=== PATIENT | male | born 1940 | race Caucasian/White ===

== ENCOUNTER 2017-08-30 18:59 | Inpatient (IN) | payer MEDICARE, BC ==
[~2017-08-30] VITALS: Ht 175.3 cm; Wt 94.7 kg
[2017-08-30] MEDS ORDERED: ALBUTEROL/IPRATROPIUM 2.5MG/0.5MG, 3 ML NPPB ONE (19:30)
[2017-08-30] MEDS ORDERED: SODIUM CHLORIDE FLUSH 10ML SYR IVF ONE (19:30)
[2017-08-30] MEDS ORDERED: ALBUTEROL/IPRATROPIUM 2.5MG/0.5MG, 3 ML ONE (19:31)
[2017-08-30 19:45] LABS: BASOPHILS # (AUTO) 0.03 x10^3/uL (0-0.1); BASOPHILS % (AUTO) 0 % (0-1); EOSINOPHILS # (AUTO) 0.22 x10^3/uL (0-0.4); EOSINOPHILS % (AUTO) 1 % (1-7); LYMPHOCYTES # (AUTO) 2.02 x10^3/uL (1-3.4); LYMPHOCYTES % (AUTO) 13 % (22-44); MD NO; MEAN CORPUSCULAR HEMOGLOBIN 29.7 pg (27.5-34.5); MEAN CORPUSCULAR HGB CONC 33.3 g/dL (33.2-36.2); MEAN CORPUSCULAR VOLUME 89.2 fL (81-97); MEAN PLATELET VOLUME 8.9 fL (7.4-10.4); MONOCYTES # (AUTO) 1.41 x10^3/uL (0.2-0.8); MONOCYTES % (AUTO) 9 % (2-9); NEUTROPHILS # (AUTO) 12.08 x10^3/uL (1.8-6.8); NEUTROPHILS % (AUTO) 77 % (42-75); PLATELET COUNT 280 x10^3/uL (130-400); RED BLOOD COUNT 4.48 x10^6/uL (4.38-5.82); RED CELL DISTRIBUTION WIDTH 16.1 % (9.4-14.8)
[2017-08-30] MEDS ORDERED: ENAL10TA PO (19:48)
[2017-08-30] MEDS ORDERED: ATOR80TA PO (19:48)
[2017-08-30] MEDS ORDERED: BUDE10.22 INH (19:48)
[2017-08-30] MEDS ORDERED: FENO90CA PO (19:48)
[2017-08-30] MEDS ORDERED: TIOT18CA INH (19:48)
[2017-08-30] MEDS ORDERED: ASPI-496 PO (19:48)
[2017-08-30] MEDS ORDERED: METO-93 PO (19:48)
[2017-08-30 19:56] LABS: ALANINE AMINOTRANSFERASE 35 U/L (12-78); ALBUMIN 3.8 g/dL (3.4-5.0); ANION GAP 8 mmol/L (5-15); CALCIUM 9.2 mg/dL (8.5-10.1); CHLORIDE 113 mmol/L (98-107)
[2017-08-30 20:00] LABS: ALKALINE PHOSPHATASE 60 U/L (45-117); BILIRUBIN,TOTAL 0.7 mg/dL (0.2-1.0); CREATININE 2.55 mg/dL (0.7-1.3); TOTAL PROTEIN 8.5 g/dL (6.4-8.2); TROPONIN I 0.021 ng/mL (0.000-0.045)
[2017-08-30] MEDS ORDERED: FUROSEMIDE 40 MG/4 ML ONE (21:12)
[2017-08-30] MEDS ORDERED: ASPIRIN 81 MG TABLET CHEW ONE (21:12)
[2017-08-30] MEDS ORDERED: ASPIRIN 81 MG TABLET CHEW PO ONE (22:00)
[2017-08-30] MEDS ORDERED: FUROSEMIDE 40 MG/4 ML IVPush ONE (22:00)
[2017-08-30] MEDS ORDERED: ONDANSETRON 2MG/ML, 2ML IVPush PRN (22:30)
[2017-08-30] MEDS ORDERED: ACETAMINOPHEN 325 MG TABLET PO PRN (22:30)
[2017-08-30] MEDS ORDERED: BISACODYL 10 MG SUPP PR PRN (22:30)
[2017-08-30] MEDS ORDERED: POLYETHYLENE GLYCOL 17 GM PACKET PO PRN (22:30)
[2017-08-30] MEDS ORDERED: NICOTINE 21 MG/24 HR PATCH.TD24 TD SCH (22:30)
[2017-08-30] MEDS ORDERED: ATORVASTATIN 80 MG TABLET PO SCH (22:30)
[2017-08-30 22:45] VITALS: BP 108/71
[2017-08-30] MEDS: IPRATROPIUM 0.5 MG/2.5 ML INHA NPPB SCH (23:00)
[2017-08-30 23:04] LABS: MICROSCOPIC NOT IND
[2017-08-30] MEDS: SODIUM CHLORIDE FLUSH 10ML SYR IVF SCH (23:23)
[2017-08-30] MEDS: HEPARIN 5,000 UNITS/ML, 1ML SQ SCH (23:23)
[2017-08-30 23:35] LABS: CULTURE INDICATED? NO
[2017-08-31] MEDS ORDERED: ALBUTEROL SULFATE 2.5 MG/3 ML NPPB PRN
[2017-08-31 03:44] VITALS: BP 131/61
[2017-08-31 04:55] LABS: MEAN CORPUSCULAR HEMOGLOBIN 29.9 pg (27.5-34.5); MEAN CORPUSCULAR HGB CONC 33.3 g/dL (33.2-36.2); MEAN CORPUSCULAR VOLUME 89.6 fL (81-97); MEAN PLATELET VOLUME 9.1 fL (7.4-10.4); PLATELET COUNT 259 x10^3/uL (130-400); RED BLOOD COUNT 4.12 x10^6/uL (4.38-5.82); RED CELL DISTRIBUTION WIDTH 16.9 % (9.4-14.8)
[2017-08-31 04:57] LABS: ALBUMIN 3.4 g/dL (3.4-5.0); ANION GAP 8 mmol/L (5-15); CALCIUM 8.6 mg/dL (8.5-10.1); CHLORIDE 112 mmol/L (98-107)
[2017-08-31 05:04] LABS: ALANINE AMINOTRANSFERASE 31 U/L (12-78); ALKALINE PHOSPHATASE 55 U/L (45-117); BILIRUBIN,TOTAL 0.9 mg/dL (0.2-1.0); CREATININE 2.27 mg/dL (0.7-1.3); TOTAL PROTEIN 7.7 g/dL (6.4-8.2); TROPONIN I 0.017 ng/mL (0.000-0.045)
[2017-08-31 05:51] LABS: BASOPHILS # (AUTO) 0.04 x10^3/uL (0-0.1); BASOPHILS % (AUTO) 0 % (0-1); EOSINOPHILS # (AUTO) 0.32 x10^3/uL (0-0.4); EOSINOPHILS % (AUTO) 2 % (1-7); LYMPHOCYTES # (AUTO) 1.72 x10^3/uL (1-3.4); LYMPHOCYTES % (AUTO) 12 % (22-44); MD SCAN; MONOCYTES # (AUTO) 1.57 x10^3/uL (0.2-0.8); MONOCYTES % (AUTO) 11 % (2-9); NEUTROPHILS % (AUTO) 74 % (42-75)
[2017-08-31 06:30] VITALS: BP 116/71
[2017-08-31] MEDS ORDERED: FUROSEMIDE 20 MG/2 ML IV SCH (07:30)
[2017-08-31] MEDS: IPRATROPIUM 0.5 MG/2.5 ML INHA NPPB SCH ×3 (08:05→15:42)
[2017-08-31] MEDS ORDERED: ASPIRIN 81 MG TABLET EC PO SCH (09:00)
[2017-08-31] MEDS ORDERED: SENNA/DOCUSATE TABLET PO SCH (09:00)
[2017-08-31] MEDS ORDERED: FENOFIBRATE 145 MG TABLET PO SCH (09:00)
[2017-08-31] MEDS ORDERED: FLUTICASONE/VILANTEROL 100-25MCG/INH INH SCH (09:00)
[2017-08-31] MEDS ORDERED: METOPROLOL SUCCINATE 50 MG TAB.ER.24H PO SCH (09:00)
[2017-08-31] MEDS: SODIUM CHLORIDE FLUSH 10ML SYR IVF SCH (09:35)
[2017-08-31] MEDS: HEPARIN 5,000 UNITS/ML, 1ML SQ SCH ×2 (09:36→11:07)
[2017-08-31 11:23] LABS: TROPONIN I < 0.015 ng/mL (0.000-0.045)
[2017-08-31 12:04] VITALS: BP 133/74
== END 2017-08-31 16:45 | disposition home or self-care (01) | DRG 291 ==
LOC: ED 21:33 → EDIP 21:37 → 5SO 22:37 → DCLOUNGE 08-31 16:26
PROVIDERS: ADMIT Hospitalist; ATTEND Hospitalist
DX: I13.0 Hypertensive heart and chronic kidney disease with heart failure and stage 1 through stage 4 chronic kidney disease, or unspecified chronic kidney disease (principal); J96.01 Acute respiratory failure with hypoxia; N17.9 Acute kidney failure, unspecified; I50.1 Left ventricular failure, unspecified; J44.9 Chronic obstructive pulmonary disease, unspecified; N18.9 Chronic kidney disease, unspecified; E78.5 Hyperlipidemia, unspecified; D72.829 Elevated white blood cell count, unspecified; F17.210 Nicotine dependence, cigarettes, uncomplicated; I25.10 Atherosclerotic heart disease of native coronary artery without angina pectoris; I25.2 Old myocardial infarction; Z79.82 Long term (current) use of aspirin; Z85.828 Personal history of other malignant neoplasm of skin; Z95.5 Presence of coronary angioplasty implant and graft; Z90.89 Acquired absence of other organs; Z79.899 Other long term (current) drug therapy; Z91.041 Radiographic dye allergy status
CPT/HCPCS: 36415; 71045; 80053; 81003; 83735; 83880; 84484; 85025; 93005; 94640; 94660; 96372; 96374; C8929; J1644; J1940; J7620; J7644